=== PATIENT | female | born 1970 | race Caucasian/White ===

== ENCOUNTER → 2017-12-06 | Outpatient (CLI) | payer OTHER ==
[2016-08-15 15:47] VITALS: BP 121/66
--- NOTE | 2017-12-06 13:32 | CT ---
History: Shortness of breath and emphysema Study: CT thorax without contrast. Sagittal and coronal reformations were provided. Comparison: August 15, 2016 Findings: There is emphysema. There is a large bullous lesion replacing most of the right upper lobe measuring at least 12 cm diameter. Centrilobular emphysematous changes are not otherwise demonstrated diffusely. There is no solid mass or nodule demonstrated. There is no effusion demonstrated. There i s no obvious adenopathy. The visualized upper abdomen is unremarkable. There is no pulmonary edema. Impression: 1. Emphysema with very large bullous lesion replacing most of the right upper lobe, unchanged. Reported By:
== END | disposition home or self-care (01) ==
LOC: RAD 12:08
PROVIDERS: ATTEND Internal Medicine Sleep Medicine
DX: J98.4 Other disorders of lung (principal); J44.9 Chronic obstructive pulmonary disease, unspecified
CPT/HCPCS: 71250

== ENCOUNTER 2018-05-08 14:30 | Inpatient (IN) ==
[2018-05-08 16:35] VITALS: BMI 24.3
[2018-05-08 16:46] LABS: BASOPHILS # (AUTO) 0.1 X10^3/uL (0.0-0.1); LYMPHOCYTES # (AUTO) 4.5 X10^3/uL (1.3-2.9); NEUTROPHILS # (AUTO) 7.7 x10^3/uL (2.2-4.8); NEUTROPHILS % (AUTO) 58.2 % (42.0-75.0); WHITE BLOOD COUNT 13.3 X10^3/uL (3.6-10.0)
[2018-05-08] MEDS: NS 500 ML IV 500 ML IV SCH (16:49)
[2018-05-08 16:50] LABS: BASOPHILS % (AUTO) 0.7 % (0.2-1.0); EOSINOPHILS % (AUTO) 0.3 % (0.9-2.9); HEMATOCRIT 40.3 % (36.0-47.0); LYMPHOCYTES % (AUTO) 33.9 % (21.0-51.0); MEAN CORPUSCULAR HEMOGLOBIN 31.8 pg (27.0-34.0); MEAN CORPUSCULAR HGB CONC 34.8 g/dL (33.0-35.0); MEAN CORPUSCULAR VOLUME 91.4 fL (80.0-100.0); MEAN PLATELET VOLUME 8.8 fL (7.4-11.0); MONOCYTES # (AUTO) 0.9 x10^3/uL (0.3-0.8); MONOCYTES % (AUTO) 6.9 % (0.0-13.0); PLATELET COUNT 278 X10^3/uL (150.0-450.0); RED BLOOD COUNT 4.41 X10^6/uL (3.5-5.4); RED CELL DISTRIBUTION WIDTH 13.2 % (11.6-16.5)
[2018-05-08] MEDS: ZITHROMAX INJ 500 MG VIAL 500 MG in NS 250 ML IV 250 ML IV SCH (16:50)
[2018-05-08 16:51] LABS: BLOOD UREA NITROGEN 12 mg/dL (7-18); CALCIUM 8.6 mg/dL (8.5-10.1); CARBON DIOXIDE 28.2 mmol/L (21-32); CHLORIDE 104 mmol/L (98-107); CREATININE 0.94 mg/dL (0.55-1.02); SODIUM 141 mmol/L (136-145); eGFR NON BLACK RACES > 60 (>60)
--- NOTE | 2018-05-08 16:55 | RAD ---
CHEST RADIOGRAPHS PA AND LATERAL VIEWS CLINICAL HISTORY: 47-year-old female with COPD. COMPARISON: CT chest 12/06/2017. FINDINGS: The cardiopericardial silhouette is stably enlarged. Massive right upper lobe bullous with scattered bullous emphysematous changes of the lung apices and chronic prominence of the perihilar l felipe markings and interstitium with flattened hemidiaphragms. There is no focal consolidation, pleural effusion or pneumothorax. The lungs are well inflated. Pulmonary vascularity is normal. Imaged osseo us structures are intact. Soft tissues are unremarkable. IMPRESSION: No acute cardiopulmonary process in a patient with chronic emphysema/COPD. Reported By:
[2018-05-08] MEDS ORDERED: SPIKE MINIBAG IV SCH (17:00)
[2018-05-08] MEDS ORDERED: FORTAZ OR TAZICEF IV SCH (17:00)
[2018-05-08] MEDS ORDERED: NS IV SCH (17:00)
[2018-05-08] MEDS ORDERED: POTASSIUM CHL 60 MEQ/NS 0.45% 500 ML IV PRN (17:16)
[2018-05-08] MEDS ORDERED: K-LYTE EFFERVESCENT PO PRN (17:16)
[2018-05-08] MEDS ORDERED: POTASSIUM CHL 40 MEQ/NS 0.45% 500 ML IV PRN (17:16)
[2018-05-08] MEDS ORDERED: K-RIDER 10 MEQ/NS 100 ML 10 MEQ/100 ML BAG IV PRN (17:16)
[2018-05-08 17:23] LABS: ABG ALLEN TEST pos; ABG HCO3 27.4 mmol/L (22-26); FRACTIONATED INSPIRED OXYGEN 21
[2018-05-08] MEDS: DUONEB 0.5 MG/3 MG NEB SCH ×2 (17:35→21:05)
[2018-05-08 17:48] LABS: APPEARANCE,URINE CLEAR (CLEAR); BILIRUBIN,URINE NEGATIVE (NEGATIVE); BLOOD/HEMOGLOBIN,URINE NEGATIVE (NEGATIVE); COLOR,URINE STRAW (YELLOW); GLUCOSE, URINE NEGATIVE (NEGATIVE); KETONES,URINE NEGATIVE (NEGATIVE); LEUKOCYTE ESTERASE ,URINE NEGATIVE (NEGATIVE); NITRITES,URINE NEGATIVE (NEGATIVE); PROTEIN,URINE NEGATIVE (NEGATIVE); UROBILINOGEN,URINE NORMAL (NORMAL)
[2018-05-08] MEDS: POTASSIUM CHLORIDE LIQ 20 MEQ UDC PO PRN (18:45)
[2018-05-08] MEDS: MAGNESIUM SULFATE 1 GRAM/100 mL PREMIX 1 GM/100 ML BAG IV PRN ×3 (20:12→23:32)
[2018-05-08] MEDS: PEPCID TAB 20 MG PO SCH (20:12)
[2018-05-08] MEDS: NORCO 5/325 MG TAB PO PRN (21:57)
[2018-05-08] MEDS ORDERED: FORTAZ or TAZICEF VIAL INJ IVP SCH (22:00)
[2018-05-08] MEDS: FORTAZ or TAZICEF VIAL INJ 2 G in NS 100 ML IV + SPIKE MINIBAG* 100 ML IV SCH (22:43)
[2018-05-09] MEDS ORDERED: SOLU-Medrol 40 MG VIAL ONE (00:37)
[2018-05-09] MEDS: DUONEB 0.5 MG/3 MG NEB SCH ×6 (00:43→20:39)
[2018-05-09] MEDS: SOLU-Medrol 40 MG VIAL IVP SCH ×3 (00:46→17:33)
[2018-05-09] MEDS: ROBITUSSIN DM PO PRN ×2 (02:05→05:46)
[2018-05-09] MEDS: FORTAZ or TAZICEF VIAL INJ 2 G in NS 100 ML IV + SPIKE MINIBAG* 100 ML IV SCH ×3 (05:42→21:23)
[2018-05-09 06:13] LABS: BASOPHILS % (AUTO) 0.2 % (0.2-1.0); HEMATOCRIT 38.5 % (36.0-47.0); HEMOGLOBIN 13.3 g/dL (12.0-16.0); LYMPHOCYTES % (AUTO) 8.8 % (21.0-51.0); MEAN CORPUSCULAR HEMOGLOBIN 31.8 pg (27.0-34.0); MEAN CORPUSCULAR HGB CONC 34.6 g/dL (33.0-35.0); MEAN PLATELET VOLUME 9.3 fL (7.4-11.0); MONOCYTES # (AUTO) 0.2 x10^3/uL (0.3-0.8); MONOCYTES % (AUTO) 1.8 % (0.0-13.0); NEUTROPHILS # (AUTO) 10.3 x10^3/uL (2.2-4.8); NEUTROPHILS % (AUTO) 89.2 % (42.0-75.0); PLATELET COUNT 242 X10^3/uL (150.0-450.0); RED BLOOD COUNT 4.19 X10^6/uL (3.5-5.4); RED CELL DISTRIBUTION WIDTH 13.3 % (11.6-16.5); WHITE BLOOD COUNT 11.5 X10^3/uL (3.6-10.0)
[2018-05-09 06:15] LABS: ALANINE AMINOTRANSFERASE 23 Units/L (12-78); ALBUMIN 3.3 g/dL (3.4-5.0); ALKALINE PHOSPHATASE 84 Units/L (46-116); ASPARTATE AMINO TRANSFERASE 10 Units/L (15-37); BLOOD UREA NITROGEN 12 mg/dL (7-18); CARBON DIOXIDE 23.1 mmol/L (21-32); CHLORIDE 105 mmol/L (98-107); COR CA(FOR HYPOALB) 8.6 mg/dL (8.5-10.1); COR NA(FOR HYPERGLY) 142 mmol/L (136-145); CREATININE 1.05 mg/dL (0.55-1.02); MAGNESIUM 2.2 mg/dL (1.7-2.9); SODIUM 140 mmol/L (136-145); TOTAL PROTEIN 6.6 g/dL (6.4-8.2); eGFR NON BLACK RACES 59 (>60)
[2018-05-09] MEDS: POTASSIUM CHLORIDE LIQ 20 MEQ UDC PO PRN (06:35)
[2018-05-09] MEDS: PEPCID TAB 20 MG PO SCH ×2 (08:28→20:35)
[2018-05-09] MEDS: ZITHROMAX INJ 500 MG VIAL 500 MG in NS 250 ML IV 250 ML IV SCH (08:29)
--- NOTE | 2018-05-09 08:29 | DR.H&P ---
H&P - History & Physical for Day of: H&P Date: 05/08/18 - Chief Complaint Chief Complaint: shortness of breath - History of Present Illness History of Present Illness: The patient is a 47 year old white female that presents to the clinic with c/o upper respiratory symptoms. patient states she is continuing to have increasing shortness of breath with nonproductive cough. States that she has completed the round of Levaquin and prednisone. States that she is having to use her nebulizer treatments frequently. States she feels like she cannot get air in. Is short of breath with walking across the room. States it feels like someone is pushing on her lungs. Has had decreased by mouth intake as well. Patient has had 2 injections of Rocephin and Decadron in the clinic setting over the last 2 weeks. - Past Medical History Past Medical History: Anxiety, GERD, Hypertension - Past Surgical History Surgical History: Hysterectomy - Family History Family Medical History: Diabetes Mellitus, Cancer, Hypertension - Social History Does patient currently use any type of tobacco product: No (QUIT 2 MONTHS AGO) Have you used tobacco products in the last 12 months: Yes Type of Tobacco Use: Cigarettes How many years tobacco product used: 30 Does any household member use tobacco: No Alcohol Use: None Drug Use: Marijuana - Medications Home Medications: No Known Drug Allergies Allergy (Verified 05/08/18 16:16) CONTINUE taking the following medications budesonide-formoterol [Symbicort] 2 puff INHALATION TID PRN 05/08/18 [History] butalbital-acetaminophen 1 tab PO BID 05/08/18 [History] citalopram 1 tab PO DAILY 05/08/18 [History] clonazepam 1 tab PO BID 05/08/18 [History] hydrocodone-acetaminophen 1 tab PO BID PRN 05/08/18 [History] loratadine 1 tab PO DAILY 05/08/18 [History] montelukast 1 tab PO DAILY 05/08/18 [History] omeprazole 1 cap PO DAILY 05/08/18 [History] promethazine-DM 1 teaspoon PO Q6H PRN 05/08/18 [History] tizanidine 1 tab PO TID 05/08/18 [History] - Review of Systems Constitutional: Weakness, Malaise Eyes: No Symptoms Reported ENT: No Symptoms Reported Respiratory: Cough, Shortness of Breath, SOB with Excertion, Pleuritic Pain, Wheezing Cardiovascular: No Symptoms Reported Gastrointestinal: No Symptoms Reported Genitourinary: No Symptoms Reported Musculoskeletal: No Symptoms Reported Skin: No Symptoms Reported Neurological: No Symptoms Reported - Physical Exam Vital Signs: Temperature 98.2 F Pulse Rate [Apical] 96 Pulse Rate 80 Respiratory Rate 18 Blood Pressure [Right Arm] 130/58 Blood Pressure 121/66 O2 Sat by Pulse Oximetry 96 Oriented: Normal Eyes: Normal Ear: Normal Nose: Normal Throat: Normal Respiratory: Diminished Throughout Cardiovascular: Normal : Normal Auscultation: Bowel Sounds: Normal Palpation: Normal Tenderness: Normal Skin: Normal Musculoskeletal: Normal Psychiatric: Normal Mood Description: Calm Affect: Normal Speech Pattern: Clear - Assessment/Plan (1) Acute bronchitis with chronic obstructive pulmonary disease (COPD) Status: Acute Plan: IV antibiotics, steroids, labs, chest x-ray (2) Bullous emphysema Status: Acute Plan: nebulizer treatments, oxygen - Allergies Allergies/Adverse Reactions: Allergies Allergy/AdvReac Type Severity Reaction Status Date / Time No Known Drug Allergies Allergy Verified 05/08/18 16:16
[2018-05-09] MEDS ORDERED: PROMETHAZINE PO PRN (08:33)
[2018-05-09] MEDS ORDERED: NORCO 7.5/325 MG TAB PO PRN (08:33)
[2018-05-09] MEDS ORDERED: DEXTROMETHORPHAN PO PRN (08:33)
[2018-05-09] MEDS ORDERED: PHENERGAN SYRUP PLAIN 6.25MG/5ML PO PRN (08:56)
[2018-05-09] MEDS ORDERED: FIORICET TAB PO PRN (08:57)
[2018-05-09] MEDS ORDERED: BUTALBITAL ACETAMINOPHEN PO SCH (09:00)
[2018-05-09] MEDS: PULMICORT NEB TX 0.5 MG NEB SCH ×2 (09:20→20:39)
[2018-05-09] MEDS: SINGULAIR TAB 10 MG PO SCH (10:06)
[2018-05-09] MEDS: KLONOPIN TAB 1 MG PO SCH ×2 (10:06→20:35)
[2018-05-09] MEDS: PriLOSEC PO SCH (10:06)
[2018-05-09] MEDS: CELEXA PO SCH (10:07)
[2018-05-09] MEDS: CLARITIN PO SCH (10:07)
[2018-05-09] MEDS ORDERED: TOPROL XL PO ONE (12:00)
[2018-05-09] MEDS: TOPROL XL PO SCH (12:01)
--- NOTE | 2018-05-09 13:32 | PCM.PROG ---
Progress Note - Progress Note for Day of Date of Exam: 05/09/18 - Subjective Subjective: 47 WF DIRECT ADMIT ON 05/08 WITH COPD EXACERBATION, R/O PNEUMONIA. PT CURRENTLY ON IV ATBX, RESP THERAPY, SUPPLEMENTAL O2. VERIFY AND RESUME HOME MEDS. PT CO HEART RACING THIS AM, NORMALLY TAKES METOPROLOL AND HASNT NOT HAD IT THIS AM. PT STATES TIGHTNESS IN CHEST IMPROVING, CONTINUES WITH PRODUCTIVE COUGH - Past Medical Family Social History Past Med/Fam/Surg Hx: No changes since H&P Allergies: Allergies No Known Drug Allergies Allergy (Verified 05/08/18 16:16) - Review of Systems ROS: No change since H&P - Vital Signs and I&O's Vital Signs: Temperature 98.2 F Pulse Rate [Apical] 98 Pulse Rate 92 Respiratory Rate 20 Blood Pressure [Right Arm] 141/76 Blood Pressure 121/66 O2 Sat by Pulse Oximetry 95 Intake and Output: Intake & Output 05/07/18 05/08/18 05/09/18 05/10/18 11:59 11:59 11:59 11:59 Intake Total 1431 / 1431 Output Total 1000 / 1000 Balance 431 / 431 - Physical Exam Oriented: Normal Eyes: Normal Ear: Normal Nose: Normal Throat: Normal Respiratory: Diminished, Rhonchi Cardiovascular: Tachycardia (106) : Normal Auscultation: Bowel Sounds: Normal Tenderness: Normal Skin: Normal Musculoskeletal: Normal Psychiatric: Normal Mood Description: Calm Affect: Normal Speech Pattern: Clear - Laboratory and Diagnostics Result Diagrams: 05/09/18 05:28 05/09/18 08:30 Labs: 05/08/18 17:32 Urine,Clean Catch Urine Culture - Preliminary 05/09/18 01:05 Sputum - Expectorated Sputum - Final Laboratory WBC 11.5 X10^3/uL (3.6-10.0) H 05/09/18 05:28 RBC 4.19 X10^6/uL (3.5-5.4) 05/09/18 05:28 Hgb 13.3 g/dL (12.0-16.0) 05/09/18 05:28 Hct 38.5 % (36.0-47.0) 05/09/18 05:28 MCV 92.0 fL (80.0-100.0) 05/09/18 05:28 MCH 31.8 pg (27.0-34.0) 05/09/18 05:28 MCHC 34.6 g/dL (33.0-35.0) 05/09/18 05:28 RDW 13.3 % (11.6-16.5) 05/09/18 05:28 Plt Count 242 X10^3/uL (150.0-450.0) 05/09/18 05:28 MPV 9.3 fL (7.4-11.0) 05/09/18 05:28 Neut % (Auto) 89.2 % (42.0-75.0) H 05/09/18 05:28 Lymph % (Auto) 8.8 % (21.0-51.0) L 05/09/18 05:28 [place] % (Auto) 1.8 % (0.0-13.0) 05/09/18 05:28 Eos % (Auto) 0.0 % (0.9-2.9) L 05/09/18 05:28 Baso % (Auto) 0.2 % (0.2-1.0) 05/09/18 05:28 Neut # (Auto) 10.3 x10^3/uL (2.2-4.8) H 05/09/18 05:28 Lymph # (Auto) 1.0 X10^3/uL (1.3-2.9) L 05/09/18 05:28 [place] # (Auto) 0.2 x10^3/uL (0.3-0.8) L 05/09/18 05:28 Eos # (Auto) 0.0 x10^3/uL (0.0-0.2) 05/09/18 05:28 Baso # (Auto) 0.0 X10^3/uL (0.0-0.1) 05/09/18 05:28 Absolute Nucleated RBC 0.0 /100WBC 05/09/18 05:28 Sample Site rr 05/08/18 16:55 ABG pH 7.490 (7.35-7.45) H 05/08/18 16:55 ABG pCO2 36.0 mmHg (35.0-45.0) 05/08/18 16:55 ABG pO2 89.0 mmHg (80.0-100.0) 05/08/18 16:55 ABG HCO3 27.4 mmol/L (22-26) H 05/08/18 16:55 ABG O2 Saturation 98.0 % (90-100) 05/08/18 16:55 ABG Base Excess 4.0 mmol/L (-2.0-2.0) H 05/08/18 16:55 Jj Test pos 05/08/18 16:55 A-a Gradient 16.0 mmHg 05/08/18 16:55 FiO2 21 05/08/18 16:55 Blood Gas Comments pt donna well. ej/cn 05/08/18 16:55 Sodium 140 mmol/L (136-145) 05/09/18 05:28 Corrected Sodium 142 mmol/L (136-145) 05/09/18 05:28 Potassium 4.1 mmol/L (3.5-5.1) 05/09/18 08:30 Chloride 105 mmol/L (98-107) 05/09/18 05:28 Carbon Dioxide 23.1 mmol/L (21-32) 05/09/18 05:28 BUN 12 mg/dL (7-18) 05/09/18 05:28 Creatinine 1.05 mg/dL (0.55-1.02) H 05/09/18 05:28 Est GFR (MDRD) Af Amer > 60 (>60) 05/09/18 05:28 Est GFR (MDRD) Non-Af 59 (>60) 05/09/18 05:28 Glucose 199 mg/dL (65-99) H 05/09/18 05:28 Calcium 8.0 mg/dL (8.5-10.1) L 05/09/18 05:28 Corrected Calcium 8.6 mg/dL (8.5-10.1) 05/09/18 05:28 Magnesium 2.2 mg/dL (1.7-2.9) 05/09/18 05:28 Total Bilirubin 0.20 mg/dL (0.2-1.0) 05/09/18 05:28 AST 10 Units/L (15-37) L 05/09/18 05:28 ALT 23 Units/L (12-78) 05/09/18 05:28 Alkaline Phosphatase 84 Units/L (46-116) 05/09/18 05:28 Total Protein 6.6 g/dL (6.4-8.2) 05/09/18 05:28 Albumin 3.3 g/dL (3.4-5.0) L 05/09/18 05:28 Globulin 3.3 g/dL (2.5-4.5) 05/09/18 05:28 Albumin/Globulin Ratio 1.0 Ratio (1.1-2.1) L 05/09/18 05:28 Specimen Type Clean catch urine 05/08/18 17:32 Urine Color Straw (YELLOW) 05/08/18 17:32 Urine Appearance Clear (CLEAR) 05/08/18 17:32 Urine pH 7.0 (5.0 - 8.0) 05/08/18 17:32 Ur Specific [place] 1.010 (1.000-1.030) 05/08/18 17:32 Urine Protein Negative (NEGATIVE) 05/08/18 17:32 Urine Glucose (UA) Negative (NEGATIVE) 05/08/18 17:32 Urine Ketones Negative (NEGATIVE) 05/08/18 17:32 Urine Occult Blood Negative (NEGATIVE) 05/08/18 17:32 Urine Nitrite Negative (NEGATIVE) 05/08/18 17:32 Urine Bilirubin Negative (NEGATIVE) 05/08/18 17:32 Urine Urobilinogen Normal (NORMAL) 05/08/18 17:32 Ur Leukocyte Esterase Negative (NEGATIVE) 05/08/18 17:32 - Plan (1) Acute bronchitis with chronic obstructive pulmonary disease (COPD) Status: Acute Plan: IV antibiotics, steroids, labs, chest x-ray. verify and resume home meds. cultures collected on admission (2) Sinus tachycardia Status: Acute (3) Anxiety Status: Acute
[2018-05-09] MEDS: ZANAFLEX PO SCH ×2 (14:00→21:24)
[2018-05-09] MEDS: NORCO 5/325 MG TAB PO PRN (14:00)
[2018-05-09] MEDS ORDERED: PATIENT'S HOME MEDICATION (Budesonide-Formoterol 2 PUFF) IN SCH (14:00)
[2018-05-09] MEDS: NS 500 ML IV 500 ML IV SCH (17:33)
[2018-05-10] MEDS: SOLU-Medrol 40 MG VIAL IVP SCH ×2 (00:55→09:00)
[2018-05-10] MEDS: DUONEB 0.5 MG/3 MG NEB SCH ×3 (01:16→09:29)
[2018-05-10] MEDS: FORTAZ or TAZICEF VIAL INJ 2 G in NS 100 ML IV + SPIKE MINIBAG* 100 ML IV SCH (05:29)
[2018-05-10] MEDS: ZANAFLEX PO SCH (05:29)
[2018-05-10 08:08] VITALS: BP 111/58
[2018-05-10] MEDS ORDERED: TOPROL XL PO ONE (08:23)
[2018-05-10] MEDS: ZITHROMAX INJ 500 MG VIAL 500 MG in NS 250 ML IV 250 ML IV SCH (08:55)
[2018-05-10] MEDS: KLONOPIN TAB 1 MG PO SCH (08:56)
[2018-05-10] MEDS: SINGULAIR TAB 10 MG PO SCH (08:56)
[2018-05-10] MEDS: CLARITIN PO SCH (08:56)
[2018-05-10] MEDS: CELEXA PO SCH (08:56)
[2018-05-10] MEDS: PEPCID TAB 20 MG PO SCH (08:56)
[2018-05-10] MEDS: TOPROL XL PO SCH (08:56)
[2018-05-10] MEDS: PriLOSEC PO SCH (08:57)
[2018-05-10] MEDS: PULMICORT NEB TX 0.5 MG NEB SCH (09:29)
== END 2018-05-10 11:35 | disposition home or self-care (01) | DRG 202 ==
LOC: ICU 15:48
PROVIDERS: ADMIT Internal Medicine; ATTEND Internal Medicine
DX: R06.02 Shortness of breath; J44.1 Chronic obstructive pulmonary disease with (acute) exacerbation; J20.8 Acute bronchitis due to other specified organisms; J44.0 Chronic obstructive pulmonary disease with (acute) lower respiratory infection; F41.8 Other specified anxiety disorders; R00.0 Tachycardia, unspecified; K21.9 Gastro-esophageal reflux disease without esophagitis; I10 Essential (primary) hypertension
CPT/HCPCS: 36415; 36600; 71020; 71046; 80048; 80053; 81003; 82803; 83735; 84132; 85025; 87040; 87070; 87086; 87205; 93005; 93010; 94640; 94669; A4216; A4222; J0456; J0713; J2920; J3475; J7040; J7050; J7620; J7626

== ENCOUNTER 2018-07-09 14:58 | Observation (INO) ==
--- NOTE | 2018-07-09 16:51 | DR.H&P ---
H&P - History & Physical for Day of: H&P Date: 07/09/18 - Chief Complaint Chief Complaint: Nausea and Diarrhea x 1 week, Chest pain - History of Present Illness History of Present Illness: The patient is a 47yo WF wo presents to the Clinic with complaint of stomach feeling raw and having nausea. States that she has had diarrhea with mucous. Symptoms have been ongoing for 7-8 days. States that she has not been able to control the diarrhea. Is going 5-10 times a day. Vomiting is resolved. Denies fever. Denies anyone else in the house being sick. States that she is having chest pain is well. States breathing is stable today. - Past Medical History Past Medical History: Anxiety, GERD, Hypertension - Past Surgical History Surgical History: Hysterectomy - Family History Family Medical History: Diabetes Mellitus, Cancer, Hypertension - Medications Home Medications: No Known Drug Allergies Allergy (Verified 05/08/18 16:16) - Physical Exam Vital Signs: Temperature 97.6 F Pulse Rate [Right Radial] 69 Respiratory Rate 20 Blood Pressure [Right Arm] 135/79 Blood Pressure 111/58 O2 Sat by Pulse Oximetry 96 - Allergies Allergies/Adverse Reactions: Allergies Allergy/AdvReac Type Severity Reaction Status Date / Time No Known Drug Allergies Allergy Verified 05/08/18 16:16
[2018-07-09 16:55] LABS: BASOPHILS % (AUTO) 0.4 % (0.2-1.0); EOSINOPHILS # (AUTO) 0.1 x10^3/uL (0.0-0.2); EOSINOPHILS % (AUTO) 1.1 % (0.9-2.9); HEMATOCRIT 42.9 % (36.0-47.0); HEMOGLOBIN 14.9 g/dL (12.0-16.0); LYMPHOCYTES # (AUTO) 3.2 X10^3/uL (1.3-2.9); LYMPHOCYTES % (AUTO) 29.7 % (21.0-51.0); MEAN CORPUSCULAR HEMOGLOBIN 32.2 pg (27.0-34.0); MEAN CORPUSCULAR HGB CONC 34.8 g/dL (33.0-35.0); MEAN CORPUSCULAR VOLUME 92.5 fL (80.0-100.0); MEAN PLATELET VOLUME 8.9 fL (7.4-11.0); MONOCYTES # (AUTO) 0.7 x10^3/uL (0.3-0.8); NEUTROPHILS # (AUTO) 6.6 x10^3/uL (2.2-4.8); NEUTROPHILS % (AUTO) 61.8 % (42.0-75.0); PLATELET COUNT 291 X10^3/uL (150.0-450.0); RED BLOOD COUNT 4.63 X10^6/uL (3.5-5.4); RED CELL DISTRIBUTION WIDTH 12.7 % (11.6-16.5); WHITE BLOOD COUNT 10.6 X10^3/uL (3.6-10.0)
[2018-07-09 16:59] VITALS: BMI 24.1
[2018-07-09 17:07] LABS: ALANINE AMINOTRANSFERASE 39 Units/L (12-78); ALBUMIN 3.9 g/dL (3.4-5.0); ALKALINE PHOSPHATASE 88 Units/L (46-116); ASPARTATE AMINO TRANSFERASE 21 Units/L (15-37); BLOOD UREA NITROGEN 15 mg/dL (7-18); CALCIUM 8.7 mg/dL (8.5-10.1); CHLORIDE 105 mmol/L (98-107); CREATININE 0.81 mg/dL (0.55-1.02); MAGNESIUM 1.9 mg/dL (1.7-2.9); SODIUM 136 mmol/L (136-145); TOTAL PROTEIN 7.4 g/dL (6.4-8.2); eGFR NON BLACK RACES > 60 (>60)
--- NOTE | 2018-07-09 17:20 | CT ---
HISTORY: Diarrhea. Rule out colitis. Patient complaining of low abdominal/pelvic pain. Study: CT abdomen without contrast Comparison: None. Technique: Multiple axial images of the abdomen without the administration of IV contrast. Dose reduction techniques including Automated Exposure Control (AEC) and adjustment of mA and kV were utilized. Study limited secondary to lack of IV/oral contrast and not imaging the pelvis. Findings: The visualized portions of the lung bases are unremarkable. Multiple punctate calcifications within the spleen consistent with old granulomatous disease. The spleen is otherwise unremarkable. The liver, pancreas, kidneys, and adrenal glands are unremarkable in their CT appearance. The gallbladder is unremarkable in its CT appearance. No significant mesenteric lymphadenopathy or stranding can be observed. No free fluid or free air is seen within the abdomen. Limited evaluation of the bowel secondary to lack of oral contrast and collapse. The visualized large and small bowel is unremarkable. Scattered vascular calcifications without evidence of aneurysmal dilatation. The urinary bladder is grossly unremarkable. Degenerative changes of the spine. No aggressive osseous lesions. IMPRESSION: No CT evidence of acute abdominal pathology on this limited study. Reported By:
--- NOTE | 2018-07-09 17:22 | RAD ---
HISTORY: Chest pain. COPD. Study: AP portable chest Comparison: 05/08/2018 Findings: There is [id number] hyperinflation. Mild chronic interstitial scarring is noted. There is an extremely large bullous lesion in the right upper lobe with probable [id number] in the left upper lobe. This appearance is unchanged. The heart size is normal. No acute bony abnormalities are identified. IMPRESSION: 1. Findings of underlying chronic obstructive pulmonary disease with large bullous lesion in the right upper lobe, unchanged. 2. No radiographic evidence of acute cardiopulmonary disease or significant change is noted when compared to the prior examination. Reported By:
[2018-07-09 17:28] LABS: CKMB % 1.9 % (<4); CREATINE KINASE 53 Units/L (26-192); CREATINE KINASE MB < 1.0 ng/mL (0-4.0); TROPONIN I < 0.02 ng/mL (0-1.5)
[2018-07-09] MEDS: PROTONIX INJ 40 MG VIAL IVP SCH (17:58)
[2018-07-09] MEDS: NS 1000 ML 1,000 ML IV SCH (17:58)
[2018-07-09] MEDS ORDERED: DUONEB 0.5 MG/3 MG NEB PRN (18:11)
[2018-07-09 19:57] LABS: BILIRUBIN,URINE NEGATIVE (NEGATIVE); BLOOD/HEMOGLOBIN,URINE NEGATIVE (NEGATIVE); GLUCOSE, URINE NEGATIVE (NEGATIVE); KETONES,URINE NEGATIVE (NEGATIVE); LEUKOCYTE ESTERASE ,URINE 1+ (NEGATIVE); NITRITES,URINE NEGATIVE (NEGATIVE); PROTEIN,URINE NEGATIVE (NEGATIVE); UROBILINOGEN,URINE NORMAL (NORMAL)
[2018-07-09 19:58] LABS: APPEARANCE,URINE CLEAR (CLEAR); COLOR,URINE YELLOW (YELLOW)
[2018-07-09 20:06] LABS: BACTERIA,URINE TRACE /HPF (NEGATIVE); RBC,URINE NONE SEEN /HPF (NONE SEEN); SQUAMOUS EPITHELIAL CELL,UR FEW /HPF (NEGATIVE)
[2018-07-09 20:07] LABS: MUCUS,URINE FEW /HPF (NEGATIVE)
[2018-07-09] MEDS: PULMICORT NEB TX 0.5 MG NEB SCH (20:16)
[2018-07-09] MEDS ORDERED: TYLENOL 325 MG TAB PO PRN (22:46)
[2018-07-09 23:04] LABS: CKMB % 2.1 % (<4); CREATINE KINASE 48 Units/L (26-192); CREATINE KINASE MB < 1.0 ng/mL (0-4.0); TROPONIN I < 0.02 ng/mL (0-1.5)
[2018-07-10] MEDS: NS 1000 ML 1,000 ML IV SCH (05:15)
[2018-07-10 05:45] LABS: CHOL/HDL RATIO 5.4 (0.0-5.0); CHOLESTEROL 233 mg/dL (0-200); CKMB % 1.8 % (<4); CREATINE KINASE 55 Units/L (26-192); CREATINE KINASE MB < 1.0 ng/mL (0-4.0); HDL CHOLESTEROL 43 mg/dL (40-60); TRIGLYCERIDES 124 mg/dL (0-150); TROPONIN I < 0.02 ng/mL (0-1.5)
[2018-07-10] MEDS: PROVENTIL NEB TX 0.083% 2.5MG/ 3ML NEB PRN ×3 (05:50→12:22)
[2018-07-10] MEDS: PULMICORT NEB TX 0.5 MG NEB SCH (08:50)
[2018-07-10] MEDS: PROTONIX INJ 40 MG VIAL IVP SCH (08:51)
[2018-07-10 09:43] LABS: BASOPHILS # (AUTO) 0.1 X10^3/uL (0.0-0.1); BASOPHILS % (AUTO) 0.6 % (0.2-1.0); EOSINOPHILS # (AUTO) 0.1 x10^3/uL (0.0-0.2); EOSINOPHILS % (AUTO) 1.3 % (0.9-2.9); HEMATOCRIT 40.1 % (36.0-47.0); HEMOGLOBIN 13.8 g/dL (12.0-16.0); LYMPHOCYTES # (AUTO) 3.4 X10^3/uL (1.3-2.9); LYMPHOCYTES % (AUTO) 37.8 % (21.0-51.0); MEAN CORPUSCULAR HEMOGLOBIN 31.9 pg (27.0-34.0); MEAN CORPUSCULAR HGB CONC 34.4 g/dL (33.0-35.0); MEAN CORPUSCULAR VOLUME 92.9 fL (80.0-100.0); MEAN PLATELET VOLUME 9.9 fL (7.4-11.0); MONOCYTES # (AUTO) 0.6 x10^3/uL (0.3-0.8); MONOCYTES % (AUTO) 7.2 % (0.0-13.0); NEUTROPHILS # (AUTO) 4.8 x10^3/uL (2.2-4.8); NEUTROPHILS % (AUTO) 53.1 % (42.0-75.0); PLATELET COUNT 253 X10^3/uL (150.0-450.0); RED BLOOD COUNT 4.32 X10^6/uL (3.5-5.4); RED CELL DISTRIBUTION WIDTH 13.1 % (11.6-16.5)
[2018-07-10 09:51] LABS: ALANINE AMINOTRANSFERASE 33 Units/L (12-78); ALBUMIN 3.4 g/dL (3.4-5.0); ALKALINE PHOSPHATASE 83 Units/L (46-116); ASPARTATE AMINO TRANSFERASE 21 Units/L (15-37); BLOOD UREA NITROGEN 18 mg/dL (7-18); CALCIUM 8.2 mg/dL (8.5-10.1); CARBON DIOXIDE 25.9 mmol/L (21-32); CHLORIDE 107 mmol/L (98-107); CREATININE 0.84 mg/dL (0.55-1.02); SODIUM 139 mmol/L (136-145); TOTAL PROTEIN 6.5 g/dL (6.4-8.2); eGFR NON BLACK RACES > 60 (>60)
[2018-07-10] MEDS ORDERED: CARAFATE PO SCH (11:30)
[2018-07-10] MEDS ORDERED: PATIENT'S HOME MEDICATION (Albuterol Sulfate [Proair Hfa] 2 PUFF) IN PRN (13:21)
[2018-07-10] MEDS ORDERED: KLONOPIN TAB 1 MG PO PRN (13:21)
[2018-07-10] MEDS ORDERED: NORCO 7.5/325 MG TAB PO PRN (13:21)
[2018-07-10 13:30] LABS: STOOL FOR WBC NEGATIVE (NEGATIVE)
[2018-07-10] MEDS ORDERED: PATIENT'S HOME MEDICATION (Budesonide-Formoterol 2 PUFF) IN SCH (13:30)
[2018-07-10] MEDS ORDERED: SINGULAIR TAB 10 MG PO SCH ×2 (14:00→21:00)
[2018-07-10] MEDS ORDERED: TOPROL XL PO SCH (14:00)
[2018-07-10 14:09] VITALS: BP 138/65
[2018-07-10] MEDS ORDERED: TOPROL XL PO ONE (14:32)
[2018-07-10] MEDS ORDERED: PULMICORT NEB TX 0.5 MG NEB SCH (21:00)
[2018-07-11] MEDS ORDERED: CELEXA PO SCH (09:00)
== END 2018-07-10 15:00 | disposition home or self-care (01) ==
LOC: MED/SURG
PROVIDERS: ADMIT Internal Medicine; ATTEND Internal Medicine
CPT/HCPCS: 36415; 71010; 71045; 74150; 80053; 80061; 81001; 82150; 82270; 82550; 82553; 83630; 83690; 83735; 84484; 85025; 87045; 87427; 87449; 87493; 87899; 93005; 93010; 94640; 94760; 96367; 96374; A4216; A4222; C9113; G0378; J3490; J7030; J7613; J7626

== ENCOUNTER 2018-10-01 12:52 | Observation (INO) ==
--- NOTE | 2018-10-01 13:44 | RAD ---
Exam: Chest two views History: 48-year-old female with COPD exacerbation. Shortness of breath. Comparison: Previous chest radiograph from 07/09/2018 Findings: Heart size and pulmonary vasculature are normal. Hyperinflation related to COPD is again seen. A large bullous lesion is again noted in the right upper lobe with less pronounced bullous changes suspected on the left as well. Linear scarring extends across the right mid lung. No evidence of acute superimposed infiltrate or pleural effusion on either side. Bony thorax is unremarkable. Impression: COPD with large bullous disease in the right upper lobe. However no evidence of acute superimposed abnormality is seen on this exam Reported By:
[2018-10-01 13:54] LABS: BASOPHILS # (AUTO) 0.1 X10^3/uL (0.0-0.1); BASOPHILS % (AUTO) 0.5 % (0.2-1.0); EOSINOPHILS % (AUTO) 0.3 % (0.9-2.9); HEMATOCRIT 43.3 % (36.0-47.0); HEMOGLOBIN 15.1 g/dL (12.0-16.0); LYMPHOCYTES # (AUTO) 2.1 X10^3/uL (1.3-2.9); LYMPHOCYTES % (AUTO) 19.5 % (21.0-51.0); MEAN CORPUSCULAR HEMOGLOBIN 31.6 pg (27.0-34.0); MEAN CORPUSCULAR HGB CONC 34.8 g/dL (33.0-35.0); MEAN CORPUSCULAR VOLUME 90.7 fL (80.0-100.0); MONOCYTES # (AUTO) 0.6 x10^3/uL (0.3-0.8); MONOCYTES % (AUTO) 5.8 % (0.0-13.0); NEUTROPHILS # (AUTO) 7.9 x10^3/uL (2.2-4.8); NEUTROPHILS % (AUTO) 73.9 % (42.0-75.0); PLATELET COUNT 295 X10^3/uL (150.0-450.0); RED BLOOD COUNT 4.78 X10^6/uL (3.5-5.4); WHITE BLOOD COUNT 10.7 X10^3/uL (3.6-10.0)
[2018-10-01 13:58] LABS: BLOOD UREA NITROGEN 9 mg/dL (7-18); CALCIUM 9.2 mg/dL (8.5-10.1); CARBON DIOXIDE 21.6 mmol/L (21-32); CHLORIDE 105 mmol/L (98-107); CREATININE 0.83 mg/dL (0.55-1.02); SODIUM 141 mmol/L (136-145); eGFR NON BLACK RACES > 60 (>60)
[2018-10-01] MEDS ORDERED: NS 250 ML IV 250 ML IV ONE (14:16)
[2018-10-01] MEDS ORDERED: NS 250 ML IV 250 ML IV PRN (14:25)
[2018-10-01 14:44] LABS: ABG ALLEN TEST POS; ABG BASE EXCESS 1.2 mmol/L (-2.0-2.0)
[2018-10-01 14:47] VITALS: BMI 23.6
[2018-10-01] MEDS: ZITHROMAX INJ 500 MG VIAL 500 MG in NS 250 ML IV 250 ML IV SCH (15:02)
[2018-10-01] MEDS: TYLENOL 325 MG TAB PO PRN (15:41)
[2018-10-01] MEDS: DUONEB 0.5 MG/3 MG NEB SCH ×2 (16:22→20:28)
[2018-10-01] MEDS ORDERED: RESTORIL CAP 15 MG PO PRN (20:52)
[2018-10-01] MEDS: FORTAZ or TAZICEF VIAL INJ IVP SCH (20:59)
[2018-10-01 21:08] LABS: BILIRUBIN,URINE NEGATIVE (NEGATIVE); BLOOD/HEMOGLOBIN,URINE NEGATIVE (NEGATIVE); GLUCOSE, URINE NEGATIVE (NEGATIVE); KETONES,URINE NEGATIVE (NEGATIVE); LEUKOCYTE ESTERASE ,URINE NEGATIVE (NEGATIVE); NITRITES,URINE NEGATIVE (NEGATIVE); PROTEIN,URINE NEGATIVE (NEGATIVE); UROBILINOGEN,URINE NORMAL (NORMAL)
[2018-10-01 21:10] LABS: APPEARANCE,URINE CLEAR (CLEAR); COLOR,URINE PALE YELLOW (YELLOW)
--- NOTE | 2018-10-02 00:13 | DR.H&P ---
H&P - History & Physical for Day of: H&P Date: 10/01/18 - Chief Complaint Chief Complaint: SOB with rest and exertion - History of Present Illness History of Present Illness: The patient is a 48yo WF who is admitted secondary to progressive SOB. Has cough and congestion with low grade fever. Has history of COPD with large bleb to RUL. Has been using nebs and inhalers. Is having worsening shortness of breath. See julia Connelly in [place]. Will be admitted for further work up. - Past Medical History Past Medical History: Anxiety, COPD (with large bleb), GERD, Hypertension - Past Surgical History Surgical History: Hysterectomy - Family History Family Medical History: Diabetes Mellitus, Cancer, Hypertension - Social History Does patient currently use any type of tobacco product: Yes (Smokes one occasionally) Have you used tobacco products in the last 12 months: Yes (Smokes one occasionally) Type of Tobacco Use: Cigarettes Does any household member use tobacco: Yes (Smokes outside) Alcohol Use: None Drug Use: Marijuana - Medications Home Medications: No Known Drug Allergies Allergy (Verified 05/08/18 16:16) - Review of Systems Constitutional: Fever, Weakness, Malaise Eyes: No Symptoms Reported ENT: No Symptoms Reported Respiratory: Cough, Shortness of Breath, SOB with Excertion, Pleuritic Pain, Wheezing Cardiovascular: No Symptoms Reported Gastrointestinal: No Symptoms Reported Genitourinary: No Symptoms Reported Musculoskeletal: Back Pain Skin: No Symptoms Reported Neurological: No Symptoms Reported - Physical Exam Vital Signs: Temperature 97.9 F Pulse Rate [Right Brachial] 75 Pulse Rate 80 Respiratory Rate 20 Blood Pressure [Left Arm] 125/72 Blood Pressure [Right Arm] 153/77 Blood Pressure 138/65 O2 Sat by Pulse Oximetry 99 Oriented: Normal Eyes: Normal Ear: Normal Nose: Normal Throat: Normal Respiratory: Diminished Throughout, RUL Exp. Wheeze, JOSUE Exp. Wheeze Cardiovascular: Normal : Normal Auscultation: Bowel Sounds: Normal Palpation: Normal Tenderness: Normal Skin: Normal Musculoskeletal: Back:Lumbar Psychiatric: Normal Mood Description: Calm Affect: Normal Speech Pattern: Clear - Assessment/Plan (1) Emphysematous bleb of lung Status: Acute Plan: Labs, CXR, Solumedrol, Zithromax (2) Acute bronchitis with chronic obstructive pulmonary disease (COPD) Status: Acute Plan: Labs, CXR, Solumedrol, Zithromax, Nebs, O2 - Allergies Allergies/Adverse Reactions: Allergies Allergy/AdvReac Type Severity Reaction Status Date / Time No Known Drug Allergies Allergy Verified 05/08/18 16:16
[2018-10-02] MEDS: DUONEB 0.5 MG/3 MG NEB SCH ×6 (00:59→20:12)
[2018-10-02 06:05] LABS: BASOPHILS % (AUTO) 0.5 % (0.2-1.0); EOSINOPHILS # (AUTO) 0.1 x10^3/uL (0.0-0.2); EOSINOPHILS % (AUTO) 0.7 % (0.9-2.9); HEMOGLOBIN 13.7 g/dL (12.0-16.0); LYMPHOCYTES # (AUTO) 2.9 X10^3/uL (1.3-2.9); LYMPHOCYTES % (AUTO) 33.5 % (21.0-51.0); MEAN CORPUSCULAR HEMOGLOBIN 31.8 pg (27.0-34.0); MEAN CORPUSCULAR VOLUME 90.8 fL (80.0-100.0); MEAN PLATELET VOLUME 9.4 fL (7.4-11.0); MONOCYTES # (AUTO) 0.6 x10^3/uL (0.3-0.8); MONOCYTES % (AUTO) 7.2 % (0.0-13.0); NEUTROPHILS % (AUTO) 58.1 % (42.0-75.0); PLATELET COUNT 226 X10^3/uL (150.0-450.0); RED CELL DISTRIBUTION WIDTH 12.9 % (11.6-16.5); WHITE BLOOD COUNT 8.6 X10^3/uL (3.6-10.0)
[2018-10-02 06:18] LABS: ALANINE AMINOTRANSFERASE 22 Units/L (12-78); ALBUMIN 3.6 g/dL (3.4-5.0); ALKALINE PHOSPHATASE 79 Units/L (46-116); ASPARTATE AMINO TRANSFERASE 13 Units/L (15-37); BLOOD UREA NITROGEN 7 mg/dL (7-18); CALCIUM 8.8 mg/dL (8.5-10.1); CARBON DIOXIDE 24.7 mmol/L (21-32); CHLORIDE 108 mmol/L (98-107); CREATININE 0.66 mg/dL (0.55-1.02); SODIUM 145 mmol/L (136-145); TOTAL PROTEIN 6.6 g/dL (6.4-8.2); eGFR NON BLACK RACES > 60 (>60)
[2018-10-02] MEDS ORDERED: POTASSIUM CHL 60 MEQ/NS 0.45% 500 ML IV PRN (06:26)
[2018-10-02] MEDS ORDERED: K-RIDER 10 MEQ/NS 100 ML 10 MEQ/100 ML BAG IV PRN (06:26)
[2018-10-02] MEDS ORDERED: MAGNESIUM SULFATE 1 GRAM/100 mL PREMIX 1 GM/100 ML BAG IV PRN (06:26)
[2018-10-02] MEDS ORDERED: POTASSIUM CHL 40 MEQ/NS 0.45% 500 ML IV PRN (06:26)
[2018-10-02] MEDS ORDERED: KLOR-CON PO PRN (06:26)
[2018-10-02] MEDS ORDERED: K-DUR TAB 20 MEQ PO PRN (06:26)
[2018-10-02] MEDS ORDERED: MICRO K EXTEN CAP 10 MEQ PO PRN (06:26)
[2018-10-02] MEDS ORDERED: POTASSIUM CHLORIDE LIQ 20 MEQ UDC PO PRN (06:26)
[2018-10-02] MEDS: FORTAZ or TAZICEF VIAL INJ IVP SCH ×2 (09:37→20:56)
[2018-10-02] MEDS: ZITHROMAX INJ 500 MG VIAL 500 MG in NS 250 ML IV 250 ML IV SCH (09:37)
[2018-10-02] MEDS: SOLU-Medrol 40 MG VIAL IVP SCH ×2 (09:38→18:31)
[2018-10-02] MEDS: TYLENOL 325 MG TAB PO PRN ×2 (10:19→18:31)
[2018-10-02] MEDS ORDERED: NORCO 7.5/325 MG TAB PO PRN (13:21)
[2018-10-02] MEDS ORDERED: ZANAFLEX PO PRN (13:21)
[2018-10-02] MEDS ORDERED: TOPROL XL PO ONE (14:49)
[2018-10-02] MEDS: TOPROL XL PO SCH (14:51)
[2018-10-02] MEDS: CELEXA PO SCH (14:51)
[2018-10-02] MEDS: KLONOPIN TAB 1 MG PO SCH ×2 (14:52→20:54)
--- NOTE | 2018-10-02 17:31 | PCM.PROG ---
Progress Note - Progress Note for Day of Date of Exam: 10/02/18 - Subjective Subjective: 48 WF DIRECT ADMIT FROM DR CERRATO OFFICE WITH COPD EXACERBATION. PT CXR WITH CHRONIC RIGHT UPPER LOBE BULLOUS DISEASE. PT IS CURRENTLY ON IV ATBX, RESP THERAPY AND SOLU MEDROL IV. PT ON SUPPLEMENTAL O2. PT REPORTS TO CONTINUE TO FEEL WEAK. PT K + 3.2 THIS AM. PLAN TO CONTINUE RESP THERAPY, SPUTUM COLLECTED ON ADMISSION, ELECTROLYTE REPLACEMENT. - Past Medical Family Social History Past Med/Fam/Surg Hx: No changes since H&P Allergies: Allergies No Known Drug Allergies Allergy (Verified 05/08/18 16:16) - Review of Systems ROS: No change since H&P - Vital Signs and I&O's Vital Signs: Temperature 98.0 F Pulse Rate [Right Brachial] 107 Pulse Rate 93 Respiratory Rate 20 Blood Pressure [Left Arm] 138/70 Blood Pressure [Right Arm] 140/82 Blood Pressure 138/65 O2 Sat by Pulse Oximetry 97 Intake and Output: Intake & Output 09/30/18 10/01/18 10/02/18 10/03/18 11:59 11:59 11:59 11:59 Intake Total 940 / 940 600 / 600 Balance 940 / 940 600 / 600 - Physical Exam Oriented: Normal Eyes: Normal Ear: Normal Nose: Normal Throat: Normal Respiratory: Diminished, Rhonchi (MILD CENTRAL RHONCHI) Cardiovascular: Normal : Normal Auscultation: Bowel Sounds: Normal Tenderness: Normal Skin: Normal Musculoskeletal: Back:Lumbar Psychiatric: Normal Mood Description: Calm Affect: Normal Speech Pattern: Clear, Appropriate - Laboratory and Diagnostics Result Diagrams: 10/02/18 05:40 10/02/18 13:27 Labs: 10/01/18 14:21 Sputum - Expectorated Sputum Sputum Culture - Preliminary 10/01/18 14:21 Sputum - Expectorated Sputum - Final Laboratory WBC 8.6 X10^3/uL (3.6-10.0) 10/02/18 05:40 RBC 4.30 X10^6/uL (3.5-5.4) 10/02/18 05:40 Hgb 13.7 g/dL (12.0-16.0) 10/02/18 05:40 Hct 39.0 % (36.0-47.0) 10/02/18 05:40 MCV 90.8 fL (80.0-100.0) 10/02/18 05:40 MCH 31.8 pg (27.0-34.0) 10/02/18 05:40 MCHC 35.0 g/dL (33.0-35.0) 10/02/18 05:40 RDW 12.9 % (11.6-16.5) 10/02/18 05:40 Plt Count 226 X10^3/uL (150.0-450.0) 10/02/18 05:40 MPV 9.4 fL (7.4-11.0) 10/02/18 05:40 Neut % (Auto) 58.1 % (42.0-75.0) 10/02/18 05:40 Lymph % (Auto) 33.5 % (21.0-51.0) 10/02/18 05:40 [place] % (Auto) 7.2 % (0.0-13.0) 10/02/18 05:40 Eos % (Auto) 0.7 % (0.9-2.9) L 10/02/18 05:40 Baso % (Auto) 0.5 % (0.2-1.0) 10/02/18 05:40 Neut # (Auto) 5.0 x10^3/uL (2.2-4.8) H 10/02/18 05:40 Lymph # (Auto) 2.9 X10^3/uL (1.3-2.9) 10/02/18 05:40 [place] # (Auto) 0.6 x10^3/uL (0.3-0.8) 10/02/18 05:40 Eos # (Auto) 0.1 x10^3/uL (0.0-0.2) 10/02/18 05:40 Baso # (Auto) 0.0 X10^3/uL (0.0-0.1) 10/02/18 05:40 Absolute Nucleated RBC 0.0 /100WBC 10/02/18 05:40 Sample Site Rr 10/01/18 14:40 ABG pH 7.450 (7.35-7.45) 10/01/18 14:40 ABG pCO2 36.0 mmHg (35.0-45.0) 10/01/18 14:40 ABG pO2 86.0 mmHg (80.0-100.0) 10/01/18 14:40 ABG HCO3 25.0 mmol/L (22-26) 10/01/18 14:40 ABG O2 Saturation 97.0 % (90-100) 10/01/18 14:40 ABG Base Excess 1.2 mmol/L (-2.0-2.0) 10/01/18 14:40 Jj Test Pos 10/01/18 14:40 A-a Gradient 19.0 mmHg 10/01/18 14:40 FiO2 21.0 10/01/18 14:40 Blood Gas Comments Pt donna well. cdn 10/01/18 14:40 Sodium 145 mmol/L (136-145) 10/02/18 05:40 Corrected Sodium TNP 10/02/18 05:40 Potassium 3.6 mmol/L (3.5-5.1) 10/02/18 13:27 Chloride 108 mmol/L (98-107) H 10/02/18 05:40 Carbon Dioxide 24.7 mmol/L (21-32) 10/02/18 05:40 BUN 7 mg/dL (7-18) 10/02/18 05:40 Creatinine 0.66 mg/dL (0.55-1.02) 10/02/18 05:40 Est GFR (MDRD) Af Amer > 60 (>60) 10/02/18 05:40 Est GFR (MDRD) Non-Af > 60 (>60) 10/02/18 05:40 Glucose 105 mg/dL (65-99) H 10/02/18 05:40 Calcium 8.8 mg/dL (8.5-10.1) 10/02/18 05:40 Corrected Calcium TNP 10/02/18 05:40 Magnesium 2.1 mg/dL (1.7-2.9) 10/02/18 05:40 Total Bilirubin 0.40 mg/dL (0.2-1.0) 10/02/18 05:40 AST 13 Units/L (15-37) L 10/02/18 05:40 ALT 22 Units/L (12-78) 10/02/18 05:40 Alkaline Phosphatase 79 Units/L (46-116) 10/02/18 05:40 Total Protein 6.6 g/dL (6.4-8.2) 10/02/18 05:40 Albumin 3.6 g/dL (3.4-5.0) 10/02/18 05:40 Globulin 3.0 g/dL (2.5-4.5) 10/02/18 05:40 Albumin/Globulin Ratio 1.2 Ratio (1.1-2.1) 10/02/18 05:40 Specimen Type Clean catch urine 10/01/18 20:51 Urine Color Pale yellow (YELLOW) 10/01/18 20:51 Urine Appearance Clear (CLEAR) 10/01/18 20:51 Urine pH 7.0 (5.0 - 8.0) 10/01/18 20:51 Ur Specific [place] 1.015 (1.000-1.030) 10/01/18 20:51 Urine Protein Negative (NEGATIVE) 10/01/18 20:51 Urine Glucose (UA) Negative (NEGATIVE) 10/01/18 20:51 Urine Ketones Negative (NEGATIVE) 10/01/18 20:51 Urine Occult Blood Negative (NEGATIVE) 10/01/18 20:51 Urine Nitrite Negative (NEGATIVE) 10/01/18 20:51 Urine Bilirubin Negative (NEGATIVE) 10/01/18 20:51 Urine Urobilinogen Normal (NORMAL) 10/01/18 20:51 Ur Leukocyte Esterase Negative (NEGATIVE) 10/01/18 20:51 - Plan (1) Acute bronchitis with chronic obstructive pulmonary disease (COPD) Status: Acute Plan: Labs, CXR, Solumedrol, Zithromax, Nebs, O2 (2) Bullous emphysema Status: Acute (3) Hypertension Status: Acute Plan: CONTINUE RESP THERAPY, SUPPLEMENTL O2. IV ATBX, ELECTROLYTE REPLACEMENT
[2018-10-02] MEDS ORDERED: MAALOX or MYLANTA PO PRN (21:06)
[2018-10-02] MEDS ORDERED: MAALOX or MYLANTA ONE (21:08)
[2018-10-03] MEDS: DUONEB 0.5 MG/3 MG NEB SCH ×3 (00:27→08:11)
[2018-10-03] MEDS: SOLU-Medrol 40 MG VIAL IVP SCH ×2 (00:28→09:37)
[2018-10-03 05:31] LABS: BASOPHILS # (AUTO) 0.1 X10^3/uL (0.0-0.1); BASOPHILS % (AUTO) 0.5 % (0.2-1.0); HEMATOCRIT 38.7 % (36.0-47.0); HEMOGLOBIN 13.2 g/dL (12.0-16.0); LYMPHOCYTES # (AUTO) 1.2 X10^3/uL (1.3-2.9); LYMPHOCYTES % (AUTO) 7.6 % (21.0-51.0); MEAN CORPUSCULAR HEMOGLOBIN 31.6 pg (27.0-34.0); MEAN CORPUSCULAR HGB CONC 34.2 g/dL (33.0-35.0); MEAN CORPUSCULAR VOLUME 92.5 fL (80.0-100.0); MEAN PLATELET VOLUME 9.5 fL (7.4-11.0); MONOCYTES # (AUTO) 0.3 x10^3/uL (0.3-0.8); MONOCYTES % (AUTO) 2.2 % (0.0-13.0); NEUTROPHILS % (AUTO) 89.7 % (42.0-75.0); PLATELET COUNT 246 X10^3/uL (150.0-450.0); RED BLOOD COUNT 4.19 X10^6/uL (3.5-5.4); RED CELL DISTRIBUTION WIDTH 13.2 % (11.6-16.5); WHITE BLOOD COUNT 15.6 X10^3/uL (3.6-10.0)
[2018-10-03 05:46] LABS: ALANINE AMINOTRANSFERASE 24 Units/L (12-78); ALBUMIN 3.5 g/dL (3.4-5.0); ALKALINE PHOSPHATASE 80 Units/L (46-116); ASPARTATE AMINO TRANSFERASE 14 Units/L (15-37); BLOOD UREA NITROGEN 15 mg/dL (7-18); CALCIUM 9.2 mg/dL (8.5-10.1); CHLORIDE 105 mmol/L (98-107); COR NA(FOR HYPERGLY) 140 mmol/L (136-145); CREATININE 0.78 mg/dL (0.55-1.02); SODIUM 139 mmol/L (136-145); TOTAL PROTEIN 6.6 g/dL (6.4-8.2); eGFR NON BLACK RACES > 60 (>60)
[2018-10-03] MEDS ORDERED: TOPROL XL PO ONE (08:49)
[2018-10-03] MEDS: ZITHROMAX INJ 500 MG VIAL 500 MG in NS 250 ML IV 250 ML IV SCH ×2 (09:18→09:39)
[2018-10-03] MEDS: FORTAZ or TAZICEF VIAL INJ IVP SCH ×2 (09:18→09:38)
[2018-10-03] MEDS: KLONOPIN TAB 1 MG PO SCH (09:20)
[2018-10-03] MEDS: TOPROL XL PO SCH (09:21)
[2018-10-03] MEDS: CELEXA PO SCH (09:21)
--- NOTE | 2018-10-03 09:44 | RAD ---
HISTORY: COPD exacerbation. Shortness of breath. Study: AP portable chest Comparison: 10/01/2018 Findings: There is moderately severe chronic interstitial fibrosis. The prominence of lung markings has progressed when compared to 10/01/2018. This may be due to interstitial edema or infiltrate superimposed on chronic interstitial scarring. There is significant bullous formation present in the right upper lobe with what appears to probably be of bullous lesion measuring at least 13 cm in diameter. The heart size is normal. No acute bony abnormalities are identified. Mild to moderate hyperinflation is noted. IMPRESSION: 1. Findings of chronic obstructive pulmonary disease with a large bullous lesion in the right upper lobe, not felt to be significantly changed. 2. Interval increase in the prominence of lung markings suggesting possible interstitial pneumonitis or edema superimposed on chronic interstitial scarring. Clinical correlation is recommended. Reported By:
[2018-10-03 14:52] VITALS: BP 135/85
== END 2018-10-03 12:15 | disposition home or self-care (01) ==
LOC: MED/SURG
PROVIDERS: ADMIT Internal Medicine; ATTEND Internal Medicine
DX: I10 Essential (primary) hypertension; F41.8 Other specified anxiety disorders; J20.8 Acute bronchitis due to other specified organisms; J43.0 Unilateral pulmonary emphysema [MacLeod's syndrome]; K21.9 Gastro-esophageal reflux disease without esophagitis; R06.02 Shortness of breath
CPT/HCPCS: 36415; 36600; 71010; 71020; 71045; 71046; 80048; 80053; 81003; 82803; 83735; 84132; 85025; 87040; 87070; 87205; 93005; 94640; 94669; 94760; A4216; A4222; G0378; J0456; J0713; J2920; J3490; J7050; J7620